=== PATIENT | female | born 1970 | race Caucasian/White ===

== ENCOUNTER 2025-06-09 06:45 | Emergency (ER) | payer OTHER, SELFPAY ==
[2025-06-09 06:49] VITALS: BP 147/89
--- NOTE | 2025-06-09 07:32 | ED.GENMED ---
History of Present Illness
<Kristopher Miguel MD, Resident - Last Filed: 06/09/25 07:48>
General
Chief Complaint: Headache
Source: patient
Exam Limitations: none
Time Seen by Provider: 06/09/25 07:22
History of Present Illness
History of Present Illness:
Patient is a 54-year-old female with past medical history of hypothyroidism, and migraines who presented to the ER with complaint of sudden severe headache that started around 11 PM last night.
She has been having these headaches intermittently from last 1 month but this one is severe.
She had a CT head done 5 weeks ago for her sinus/eye issues.Did not show any acute findings as per the patient, report not available
She usually uses Advil to help relieve her pain, but she is on a steroid taper from last 1 month after lacrimal biopsy, she is currently on 20 mg of steroid.
She did not use Advil because of fear of drug interactions.
She is unable to keep anything down and has had persistent vomiting and nausea since last night, her last episode of vomiting was a few minutes ago.
Patient reports allergy to Compazine and does not do well with opioid medications.
Will give her a dose of Toradol and Zofran. If that is not helpful then we will also try sumatriptan to help with the headaches.
Past History
<Kristopher Miguel MD, Resident - Last Filed: 06/09/25 07:48>
Past History
ED Past Medical History: Hypothyroidism
ED Past Surgical History: None
Social History
Tobacco: Non-smoker
Alcohol: None
Review of Systems
<Kristopher Miguel MD, Resident - Last Filed: 06/09/25 07:48>
Review of Systems
All Other Systems: ROS reviewed and negative except as documented in HPI and ROS
Phy Exam
<Kristopher Miguel MD, Resident - Last Filed: 06/09/25 07:48>
General Physical Exam
General Presentation: severe distress (Due to debilitating headaches)
Cardiovascular Exam
Cardiovascular Exam: regular rate/rhythm and no murmur
Pulmonary Exam
Pulmonary Exam: lungs clear
Gastrointestinal Exam
Gastrointestinal Exam: normal bowel sounds, non tender and soft
Musculoskeletal Exam
Musculoskeletal Exam: full ROM and no edema
Psychiatric Exam
Psychiatric Exam: agitated
Course
<Kristopher Miguel MD, Resident - Last Filed: 06/09/25 07:48>
Orders/Labs/Results
Orders:
Orders
06/09/25 07:31
Ketorolac [Toradol] 15 mg IV NOW ONE
Ondansetron Injectable [Zofran] 4 mg IV NOW STA
06/09/25 07:41
Sumatriptan Succinate [Imitrex] 6 mg SC NOW STA
Vital Signs
Initial and Last Documented VS:
Initial Vital Signs
Temp Pulse Resp BP Pulse Ox
97.8 F 74 24 147/89 100
06/09/25 06:49 06/09/25 06:49 06/09/25 06:49 06/09/25 06:49 06/09/25 06:49
Last Documented Vital Signs
Temp Pulse Resp BP Pulse Ox
97.8 F 74 24 147/89 100
06/09/25 06:49 06/09/25 06:49 06/09/25 06:49 06/09/25 06:49 06/09/25 07:33
<Ilya Rodriguez DO - Last Filed: 06/09/25 07:45>
Orders/Labs/Results
Orders:
Orders
06/09/25 07:31
Ketorolac [Toradol] 15 mg IV NOW ONE
Ondansetron Injectable [Zofran] 4 mg IV NOW STA
06/09/25 07:41
Sumatriptan Succinate [Imitrex] 6 mg SC NOW STA
Vital Signs
Initial and Last Documented VS:
Initial Vital Signs
Temp Pulse Resp BP Pulse Ox
97.8 F 74 24 147/89 100
06/09/25 06:49 06/09/25 06:49 06/09/25 06:49 06/09/25 06:49 06/09/25 06:49
Last Documented Vital Signs
Temp Pulse Resp BP Pulse Ox
97.8 F 74 24 147/89 100
06/09/25 06:49 06/09/25 06:49 06/09/25 06:49 06/09/25 06:49 06/09/25 07:33
<Kristopher Miguel MD, Resident - Last Filed: 06/09/25 07:48>
MDM/Problems Addressed
Differential Diagnosis Includes:
Migraine headache
Tension headache
High blood pressure
Nausea and vomiting
MDM/Problems Addressed:
Patient is in visible distress due to the debilitating headaches.
She is holding a bucket and is vomiting repeatedly
Patient reports allergies to Compazine and Reglan
Will give a dose of IV Toradol and IV Zofran to calm down the symptoms
As per the patient, she had a CT scan done 5 days ago for eye issue and it was fine
If vomiting persist will give sumatriptan
Patient does not have a past history of hypertension and does not take any medications for that, most likely high blood pressure readings could be secondary to pain
<Kristopher Miguel MD, Resident - Last Filed: 06/09/25 07:48>
*Pulse Oximetry
SaO2: 100
Oxygen Mode of Delivery: Room air
Patient hypoxic: no
*Critical Care Note
Total Time (30-74mins, 75-104mins- exclusive of procedures): Not Applicable
ED Attending Note
<Kristopher Miguel MD, Resident - Last Filed: 06/09/25 07:48>
-
Portions of this chart may have been created with voice recognition software.� Occasional wrong word or��sound alike� substitutions may have occurred due to the inherent limitations of voice recognition software.
<Ilya Rodriguze, - Last Filed: 06/09/25 07:45>
ED Attending Note
Patient seen and examined by attending physician: Yes
I performed a history and physical exam of patient and discussed management with resident, I reviewed resident's note and agree with documented findings and plan of care.: Yes
ED Attending Note:
54-year-old female presents complaining of headache, nausea and vomiting. Patient has a history of migraines. She has never actually seen anyone for these headaches but she interprets them to be migraines. She typically takes Advil which does not
help a lot but over the course of about 24 hours the headaches will go away. Typically the headaches exist on the right frontal area and are associated with nausea vomiting. This headache is a bit more intense and located bifrontally. Patient did
not take any Advil because she is currently taking a steroid taper. This was prescribed for a lacrimal duct issue that was biopsied. She reduced her dose of steroid from 30 mg to 20 mg a day recently. She denies any focal weakness. Patient
states that she has had an adverse reaction to Compazine in the past as it made her feel like she cannot sit still.
General: Awake, Alert, Oriented X3. Appears uncomfortable from head
Vitals: unremarkable
Head: Atraumatic
Eyes: Pupils equal, EOMI
Throat: Airway intact, no exudates
Neck: Trachea midline
Abd: Soft, Nontender, No pulsatile mass
Neuro: Cranial nerves intact, muscle strength equal bilaterally, cerebellar exam normal
Skin: Warm, dry, no rash
Extremities: pulses equal b/l, no edema
We will treat with Toradol, sumatriptan and Zofran to start. Discussed imaging but patient states she had a CAT scan about a month ago which showed no acute intracranial abnormalities per her report
Discharge Plan
Interventions
Interventions:
*Risk Screen - Suicide Last Done: 06/09/25 06:49
Discharge Date and Time
Print Language: ARMENIAN
[2025-06-09] MEDS: ZOFRAN 4 MG IV (07:47)
[2025-06-09] MEDS: TORADOL 15 MG IV (07:47)
[2025-06-09 07:50] VITALS: BMI 33.8
[2025-06-09 07:51] VITALS: BP 121/76
[2025-06-09] MEDS: BENADRYL 25 MG IV (08:03)
[2025-06-09 09:31] VITALS: BP 115/72
[2025-06-09 09:33] VITALS: BP 115/72
== END 2025-06-09 09:34 | disposition home or self-care (01) ==
LOC: EMR 06:45
PROVIDERS: EMERGENCY PHYSICIAN Emergency Medicine; FAMILY PHYSICIAN Family Medicine
DX: G43.909 Migraine, unspecified, not intractable, without status migrainosus (principal); E03.9 Hypothyroidism, unspecified; Z88.8 Allergy status to other drugs, medicaments and biological substances
CPT/HCPCS: 99284; 96374; 96375 ×2

== ENCOUNTER → 2025-06-30 08:47 | Outpatient (REF) | payer OTHER, SELFPAY | LOC: RAD 08:47 | PROVIDERS: ATTENDING PHYSICIAN Ophthalmology; FAMILY PHYSICIAN Family Medicine | DX: D31.61 Benign neoplasm of unspecified site of right orbit (principal) | CPT/HCPCS: 70492; 71270; 74178; Q9967 ==